=== PATIENT | male | born 1995 | race Caucasian/White ===

== ENCOUNTER 2017-06-05 06:15 | Emergency (ER) | payer OTHER ==
[2017-06-05] MEDS: IBUPROFEN 600 MG TAB PO (06:57)
== END 2017-06-05 07:30 | disposition home or self-care (01) ==
LOC: FTE 06:15
DX: L03.012 Cellulitis of left finger (principal)
CPT/HCPCS: 99283; Z7502

== ENCOUNTER 2017-06-30 20:54 | Emergency (ER) | payer OTHER | END 2017-06-30 21:54 | disposition home or self-care (01) | LOC: E/R 20:54 | DX: J02.9 Acute pharyngitis, unspecified (principal) | CPT/HCPCS: 99283; Z7502 ==

== ENCOUNTER 2017-08-28 14:35 | Emergency (ER) | payer OTHER ==
[2017-08-28] MEDS: KETOROLAC 60 MG INJ IM (15:20)
== END 2017-08-28 16:00 | disposition home or self-care (01) ==
LOC: FTE 14:35
DX: R51 Headache (principal); R19.7 Diarrhea, unspecified; R11.2 Nausea with vomiting, unspecified
CPT/HCPCS: 96372; 99284-25

== ENCOUNTER 2018-04-02 09:27 | Emergency (ER) | payer OTHER | END 2018-04-02 10:40 | disposition home or self-care (01) | LOC: FTE 09:27 | DX: J06.9 Acute upper respiratory infection, unspecified (principal) | CPT/HCPCS: 99283; Z7502 ==